=== PATIENT | female | born 1955 | race Caucasian/White ===

== ENCOUNTER → 2024-11-16 10:18 | Outpatient (REF) | payer MEDICARE, OTHER, SELFPAY | LOC: HWRAD 10:18 | PROVIDERS: ATTENDING PHYSICIAN Urology | DX: N30.10 Interstitial cystitis (chronic) without hematuria (principal); M62.89 Other specified disorders of muscle; N95.2 Postmenopausal atrophic vaginitis | CPT/HCPCS: 76775; 76856 ==